=== PATIENT | female | born 1980 | race Caucasian/White ===

== ENCOUNTER 2018-10-05 11:37 | Observation (INO) ==
--- NOTE | 2018-10-05 13:12 | P.HPOB ---
History of Present Illness Service: obstetrics Primary Care Physician: No Primary Care Physician History of Present Illness: 37 yo at 34 weeks with twins Di/Di on aldomet 500 mg BID csme to office with BP 158/90 and 140/102. she has gestational diabetes and diet controlled Diabetes. She feels ok with no weight gain and no headache or visual disturbance Weeks Gestation:: 34 Para: 0 : 2 Total # of Miscarriage(s): 1 Review of Systems All other systems reviewed negative except as stated in HPI PMFSH - Medical / Surgical Hx Neg / Unobtainable Surgical History: No Previous Surgery - Medical History Medical History: Medical History (Last Updated 10/05/18 @ 13:09 by Prabhjot Espana MD) Anxiety about health Asthma affecting in third trimester MTHFR mutation - Social History I have reviewed the patient's Social History: Yes - Tobacco History Second Hand Smoke Exposure: No Tobacco Use In Past 30 Days: No Smoking Status: Never smoker - Alcohol History How Often Do You Have a Drink Containing Alcohol: Never - Substance Use History Substance History: No History of Abuse - Travel History History of Recent Travel: No Medications and Allergies Active Medications: Active Medications Betamethasone Acet/Betameth SodPhos (Celestone Soluspan Inj) 12 mg IM Q24H VAN Stop: 10/07/18 13:14 Non-Formulary Medication (Methyldopa) 500 mg PO BID VAN Non-Formulary Medication (Aspir-81) 81 mg PO DAILY [facility] Sodium Chloride (Ns Flush) 2 ml IV.FLUSH PRN PRN PRN Reason: FLUSH AFTER USING IV ACCESS Sodium Chloride (Ns Flush) 2 ml IV.FLUSH BID [facility] Allergies Allergy/AdvReac Type Severity Reaction Status Date / Time No Known Allergies Allergy Unverified 09/02/18 21:06 Home Medications Medication Instructions Recorded Confirmed Type Aspir-81 81 mg PO DAILY 10/05/18 10/05/18 History [id number] fumarate-FA 1 tab PO DAILY 10/05/18 10/05/18 History [] methyldopa 500 mg PO BID 10/05/18 10/05/18 History Exam Vital signs: Vital Signs 10/05/18 11:50 10/05/18 12:00 10/05/18 12:14 Temperature 98.2 F Pulse Rate 111 H 99 H Respiratory Rate 16 Blood Pressure 158/85 H 155/90 H Intake & Output 10/04/18 10/05/18 10/05/18 18:59 06:59 18:59 Weight 91.626 kg - Constitutional no acute distress - Routine HEENT Exam Head: Present: normocephalic - Routine Neck Exam Present: supple, full ROM - Routine Respiratory Exam Present: CTA bilaterally - Routine Cardiovascular Exam Present: RRR - Routine Abdominal Exam Present: soft, normoactive bowel sounds - Routine Extremities Exam Present: full ROM - Routine Skin Exam Present: intact - Routine Neurological Exam Present: alert, oriented X3 - Additional findings Additional findings: twin with HTN and DM Caprini VTE Risk Assessment Caprini VTE Risk Assessment: No/Low Risk (score <= 1) Caprini Risk Assessment Model: Point Value = 1 Point Value = 2 Point Value = 3 Point Value = 5 Age 41-60 Minor surgery BMI > 25 kg/m2 Swollen legs Varicose veins or History of unexplained or recurrent spontaneous Oral contraceptives or hormone replacement Sepsis (< 1 month) Serious lung disease, including pneumonia (< 1 month) Abnormal pulmonary function Acute myocardial infarction Congestive heart failure (< 1 month) History of inflammatory bowel disease Medical patient at bed rest Age 61-74 Arthroscopic surgery Major open surgery (> 45 min) Laparoscopic surgery (> 45 min) Malignancy Confined to bed (> 72 hours) Immobilizing plaster cast Central venous access Age >= 75 History of VTE Family history of VTE Factor V Leiden Prothrombin [id number] Lupus anticoagulant Anticardiolipin antibodies Elevated serum homocysteine Heparin-induced thrombocytopenia Other congenital or acquired thrombophilia Stroke (< 1 month) Elective arthroplasty Hip, pelvis, or leg fracture Acute spinal cord injury (< 1 month) Prophylaxis Regimen: Total Risk Factor Score Risk Level Prophylaxis Regimen 0-1 Low Early ambulation 2 Moderate Order ONE of the following: *Sequential Compression Device (SCD) *Heparin 5000 units SQ BID 3-4 Higher Order ONE of the following medications: *Heparin 5000 units SQ TID *Enoxaparin/Lovenox 40 mg SQ daily (WT < 150 kg, CrCl > 30 mL/min) *Enoxaparin/Lovenox 30 mg SQ daily (WT < 150 kg, CrCl > 10-29 mL/min) *Enoxaparin/Lovenox 30 mg SQ BID (WT < 150 kg, CrCl > 30 mL/min) AND/OR *Sequential Compression Device (SCD) 5 or more Highest Order ONE of the following medications: *Heparin 5000 units SQ TID (Preferred with Epidurals) *Enoxaparin/Lovenox 40 mg SQ daily (WT < 150 kg, CrCl > 30 mL/min) *Enoxaparin/Lovenox 30 mg SQ daily (WT < 150 kg, CrCl > 10-29 mL/min) *Enoxaparin/Lovenox 30 mg SQ BID (WT < 150 kg, CrCl > 30 mL/min) AND *Sequential Compression Device (SCD) Assessment and Plan - Diagnosis (1) Diabetes mellitus in in third trimester Code(s): O24.913 - Unspecified diabetes mellitus in , third trimester Status: Acute (2) Twin gestation in third trimester Code(s): O30.003 - Twin , unspecified number of placenta and unspecified number of amniotic sacs, third trimester Status: Acute (3) Hypertension affecting in third trimester Code(s): O16.3 - Unspecified maternal hypertension, third trimester Status: Acute - Plan 24 hour urine labs and serial BP
[2018-10-05 13:15] LABS: Baso % (Auto) 0.5 % (0.0-2.0); Eos # (Auto) 0.2 th/mm3 (0.0-0.4); Eos % (Auto) 2.3 % (0.0-4.0); Hematocrit 34.9 % (35.0-46.0); Hemoglobin 12.1 gm/dL (11.6-15.3); Lymph # (Auto) 1.2 th/mm3 (1.0-4.8); Lymph % (Auto) 15.4 % (9.0-44.0); Mean Corpuscular HGB Conc 34.7 % (32.0-36.0); Mean Corpuscular Hemoglobin 32.5 pg (27.0-34.0); Mean Corpuscular Volume 93.9 fL (80.0-100.0); Mean Platelet Volume 8.3 fL (7.0-11.0); Mono # (Auto) 0.4 th/mm3 (0.0-0.9); Mono % (Auto) 5.7 % (0.0-8.0); Neut % (Auto) 76.1 % (16.0-70.0); Platelet Count 219 th/mm3 (150-450); Red Blood Count 3.72 mil/mm3 (4.00-5.30); Red Cell Distribution Width 14.8 % (11.6-17.2); White Blood Count 7.9 th/mm3 (4.0-11.0)
[2018-10-05 13:45] LABS: Albumin 2.6 g/dL (3.4-5.0); Anion Gap 8 meq/L (5-15); Aspartate Aminotransferase 26 U/L (15-37); Blood Urea Nitrogen 10 mg/dL (7-18); Calcium 8.7 mg/dL (8.5-10.1); Chloride 109 meq/L (98-107); Glomerular Filtration Rate Greater Than 89 mL/min (>89); Glucose,Random 67 mg/dL (74-106); Potassium 3.8 meq/L (3.5-5.1); Sodium 137 meq/L (136-145); Uric Acid 4.4 mg/dl (2.6-6.0)
[2018-10-05 13:46] LABS: Alanine Aminotransferase 22 U/L (10-53)
[2018-10-05 13:48] LABS: Alkaline Phosphatase 289 U/L (45-117); Total Protein 6.9 g/dL (6.4-8.2)
[2018-10-05] MEDS: Betamethasone Sod Phos/Acetate Inj 30 MG/5 ML Vial IM SCH (13:57)
[2018-10-05] MEDS ORDERED: Citric Acid/Sodium Citrate Liq 30 ML UDC ONE (23:56)
[2018-10-06 12:01] VITALS: TEMP 98.8
[2018-10-06 12:05] VITALS: BP 125/68; PULSE 138; RESP 17
[2018-10-06] MEDS: Betamethasone Sod Phos/Acetate Inj 30 MG/5 ML Vial IM SCH (14:02)
== END 2018-10-06 14:30 | disposition home or self-care (01) ==
LOC: H2E
PROVIDERS: ADMIT Obstetrics & Gynecology; ATTEND Obstetrics & Gynecology

== ENCOUNTER 2018-10-19 13:55 | Inpatient (IN) ==
[2018-10-19] MEDS ORDERED: ceFAZolin 2 GM Premix Inj 2 GM/50 ML PIGGYBACK IV.SIG PRN (14:53)
[2018-10-19] MEDS ORDERED: Citric Acid/Sodium Citrate Liq 30 ML UDC PO SCH (15:00)
--- NOTE | 2018-10-19 15:06 | P.HPOB ---
History of Present Illness Service: for cs 36 weeks twins hypertension and diabetes gestational Primary Care Physician: No Primary Care Physician History of Present Illness: 37 yo here for CS for twin A breech. Bp today 150/96 and repeat the same, She has Rasheeda twins and gestational diabetes managed with diet. She is on aldomet 500 mg BID Weeks Gestation:: 36 Para: 0 : 2 - Inpatient Certification I certify that the inpatient services were ordered in accordance with Medicare regulations governing the order. This includes certification that hospital inpatient services are reasonable and necessary and in the case of services not specified as inpatient-only under 42 CFR 419.22(n), that they are appropriately provided as inpatient services in accordance to with the 2-midnight benchmark under 43 CFR 412.3(e) Estimated Total Length of Stay (Days): 3 Plans for Post Hospital Care: Home Review of Systems All other systems reviewed negative except as stated in HPI PMFSH - Medical / Surgical Hx Neg / Unobtainable Medical Problems Denied: Yes (asthma, and anxiety) - Medical History Medical History: Medical History (Last Updated 10/05/18 @ 13:09 by Prabhjot Espana MD) Anxiety about health Asthma affecting in third trimester MTHFR mutation - Social History I have reviewed the patient's Social History: Yes - Tobacco History Second Hand Smoke Exposure: No Smoking Status: Never smoker - Alcohol History How Often Do You Have a Drink Containing Alcohol: Never - Substance Use History Substance History: No History of Abuse - Travel History History of Recent Travel: No Medications and Allergies Active Medications: Active Medications Citric Acid/Sodium Citrate (Sodium Citrate/Citric Acid Liq) 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[employer] 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 Stop: 10/23/18 14:59 Cefazolin Sodium/Dextrose (Ancef 2 Gm Premix Inj) 2 gm in 50 mls @ 100 mls/hr IV.SIG [employer]IST[employer] PROFESS[employer] PRN PRN Reason: ON-CALL Stop: 10/20/18 14:52 Lactated Ringer's (Lr 1000 Ml Inj) 1,000 mls @ 150 mls/hr IV.CONT .Q6H40M VAN Lactated Ringer's (Lr 1000 Ml Inj) 1,000 mls @ 2,000 mls/hr IV.SIG .Q30M ONE Stop: 10/19/18 15:22 Non-Formulary Medication (Methyldopa) 500 mg PO BID VAN Allergies Allergy/AdvReac Type Severity Reaction Status Date / Time No Known Allergies Allergy Verified 10/19/18 14:29 Home Medications Medication Instructions Recorded Confirmed Type Aspir-81 81 mg PO DAILY 10/05/18 10/19/18 History [id number] fumarate-FA 1 tab PO DAILY 10/05/18 10/19/18 History [] albuterol sulfate 1 puff INHALATION DAILY PRN 10/05/18 10/19/18 History methyldopa 500 mg PO BID 10/05/18 10/19/18 History Exam Vital signs: Vital Signs 10/19/18 14:14 10/19/18 14:15 Temperature 98.0 F Pulse Rate 107 H Respiratory Rate 20 Blood Pressure 151/85 H Intake & Output 10/18/18 10/19/18 10/19/18 18:59 06:59 18:59 Weight 91.172 kg - Constitutional no acute distress, average body habitus - Routine HEENT Exam Head: Present: normocephalic - Routine Neck Exam Present: supple, full ROM - Routine Respiratory Exam Present: CTA bilaterally - Routine Cardiovascular Exam Present: RRR - Routine Abdominal Exam Present: soft, normoactive bowel sounds - Routine Exam External: Present: normal urethra appearance Perineum Description: Intact Comments: US breech vertex presentation - Routine Extremities Exam Present: full ROM - Routine Skin Exam Present: intact - Routine Neurological Exam Present: alert, oriented X3 Results - Labs Labs: Laboratory Results - last 24 hr 10/19/18 14:11 POC Glucose 66 L Caprini VTE Risk Assessment Caprini VTE Risk Assessment: No/Low Risk (score <= 1) Caprini Risk Assessment Model: Point Value = 1 Point Value = 2 Point Value = 3 Point Value = 5 Age 41-60 Minor surgery BMI > 25 kg/m2 Swollen legs Varicose veins or History of unexplained or recurrent spontaneous Oral contraceptives or hormone replacement Sepsis (< 1 month) Serious lung disease, including pneumonia (< 1 month) Abnormal pulmonary function Acute myocardial infarction Congestive heart failure (< 1 month) History of inflammatory bowel disease Medical patient at bed rest Age 61-74 Arthroscopic surgery Major open surgery (> 45 min) Laparoscopic surgery (> 45 min) Malignancy Confined to bed (> 72 hours) Immobilizing plaster cast Central venous access Age >= 75 History of VTE Family history of VTE Factor V Leiden Prothrombin [id number] Lupus anticoagulant Anticardiolipin antibodies Elevated serum homocysteine Heparin-induced thrombocytopenia Other congenital or acquired thrombophilia Stroke (< 1 month) Elective arthroplasty Hip, pelvis, or leg fracture Acute spinal cord injury (< 1 month) Prophylaxis Regimen: Total Risk Factor Score Risk Level Prophylaxis Regimen 0-1 Low Early ambulation 2 Moderate Order ONE of the following: *Sequential Compression Device (SCD) *Heparin 5000 units SQ BID 3-4 Higher Order ONE of the following medications: *Heparin 5000 units SQ TID *Enoxaparin/Lovenox 40 mg SQ daily (WT < 150 kg, CrCl > 30 mL/min) *Enoxaparin/Lovenox 30 mg SQ daily (WT < 150 kg, CrCl > 10-29 mL/min) *Enoxaparin/Lovenox 30 mg SQ BID (WT < 150 kg, CrCl > 30 mL/min) AND/OR *Sequential Compression Device (SCD) 5 or more Highest Order ONE of the following medications: *Heparin 5000 units SQ TID (Preferred with Epidurals) *Enoxaparin/Lovenox 40 mg SQ daily (WT < 150 kg, CrCl > 30 mL/min) *Enoxaparin/Lovenox 30 mg SQ daily (WT < 150 kg, CrCl > 10-29 mL/min) *Enoxaparin/Lovenox 30 mg SQ BID (WT < 150 kg, CrCl > 30 mL/min) AND *Sequential Compression Device (SCD) Assessment and Plan - Diagnosis (1) Twin gestation in third trimester Code(s): O30.003 - Twin , unspecified number of placenta and unspecified number of amniotic sacs, third trimester Status: Acute (2) Hypertension affecting in third trimester Code(s): O16.3 - Unspecified maternal hypertension, third trimester Status: Acute (3) Diabetes mellitus in in third trimester Code(s): O24.913 - Unspecified diabetes mellitus in , third trimester Status: Acute (4) Anxiety about health Code(s): F41.8 - Other specified anxiety disorders Status: Acute - Plan for primary CS
[2018-10-19 15:35] LABS: Baso # (Auto) 0.1 th/mm3 (0.0-0.2); Baso % (Auto) 0.5 % (0.0-2.0); Eos # (Auto) 0.1 th/mm3 (0.0-0.4); Eos % (Auto) 1.1 % (0.0-4.0); Hemoglobin 13.3 gm/dL (11.6-15.3); Lymph # (Auto) 1.6 th/mm3 (1.0-4.8); Lymph % (Auto) 16.7 % (9.0-44.0); Mean Corpuscular Hemoglobin 32.6 pg (27.0-34.0); Mean Corpuscular Volume 93.1 fL (80.0-100.0); Mean Platelet Volume 8.8 fL (7.0-11.0); Mono # (Auto) 0.5 th/mm3 (0.0-0.9); Mono % (Auto) 5.4 % (0.0-8.0); Neut # (Auto) 7.3 th/mm3 (1.8-7.7); Neut % (Auto) 76.3 % (16.0-70.0); Platelet Count 210 th/mm3 (150-450); Red Blood Count 4.08 mil/mm3 (4.00-5.30); Red Cell Distribution Width 14.8 % (11.6-17.2); White Blood Count 9.6 th/mm3 (4.0-11.0)
[2018-10-19] MEDS ORDERED: Morphine Sulfate PF Inj 5 MG/10 ML Ampul ONE (15:44)
[2018-10-19 16:03] LABS: Bacteria,Urine Rare /hpf; Bilirubin,Urine Negative (Negative); Clarity,Urine Clear (Clear); Color,Urine Yellow (Yellw/Straw); Glucose,Urine (UA) Negative (Negative); Leukocyte Esterase,Urine Negative (Negative); Mucus,Urine Few /lpf (Occasional); Nitrite,Urine Negative (Negative); Specific Gravity,Urine 1.015 (1.002-1.035); Squamous Epithelial Cell,Urine 1 /hpf (0-5)
[2018-10-19] MEDS ORDERED: Oxytocin 30 Units/500ml Premix 30 UNITS/500 ML BAG IV.SIG ONE (16:56)
[2018-10-19] MEDS ORDERED: Simethicone 80 MG Chew Tablet PO PRN (16:56)
--- NOTE | 2018-10-19 17:04 | P.OBDELI ---
Procedure Note - Pre Op Diagnosis (1) Maternal care for breech presentation, fetus 2 (2) Twin gestation in third trimester (3) Hypertension affecting in third trimester (4) Diabetes mellitus in in third trimester (5) Anxiety about health - Post Op Diagnosis (1) delivery delivered Performed by: Prahbjot Espana MD Procedure: Primary Low Transverse Section Indication for Delivery: malposition (twin Breech/vertex) Informed Consent Obtained: For anesthesia, For procedure Confirmed Correct: Patient, Procedure, Site, Time-out taken Anesthesia: Spinal Medication Prior to Procedure: As documented in eMAR Monitoring During Procedure: Blood pressure monitoring Urinary Catheter: Inserted using sterile technique, To dependent drainage Sterile Preparation: Duraprep Position: Supine with wedge to left side - Operative Features Skin Incision: Pfannenstiel Uterine Incision: Low transverse w/knife / blunt ext Membranes Ruptured: Artificially Presentation: Occiput anterior, Breech Status of : Viable Placenta Delivered: Intact Medications: Antibiotics Procedure Tolerated: Well Maternal Condition: Stable Procedure in Detail: Taken to the operating room identified by name band and verbally and given a regional anesthetic. She was prepped and draped in the usual sterile manner for a section. A time out was taken. A Pfannenstiel incision was made and carried down to the fascia the fascia was nicked bilaterally and the fascia was taken off the rectus muscle by blunt and sharp dissection. The rectus muscles were spread bluntly and the peritoneum was entered under direct vision. The incision was extended with care to avoid the urinary bladder. A bladder blade was placed and a bladder flap was created in the usual fashion. The lower uterine segment was then incised sharply in a transverse manner and taken down in the midline until the uterine cavity was entered. The incision was extended with the surgeon's fingers. twin A in breech presentation delivered [place] breech and arm flexed across chest and keeping head flexed twin A delivered with gentle fundal pressure. Twin B The vertex was grasped and with fundal pressure the vertex was delivered without difficulty hypopharynx and nasopharynx were suctioned and the remainder of the infant delivered without difficulty. The cord clamping was delayed 45 seconds on both babies and then the cord was clamped cut and the was handed over to the resuscitation team cord blood was obtained the placentas were removed manually and the uterus was curettaged twice with a wet lap. The uterus was delivered from the abdomen. The uterine incision was repaired with 0 Vicryl in a running fashion in 2 layers the second layer imbricating the first. The cul- de-sac and gutters were cleaned of blood and debris the uterus was delivered back into the abdomen. The rectus muscles were reapproximated with 0 Vicryl in a running the fascia was repaired with 0 Vicryl from lateral to midline bilaterally. The subcutaneous layer was repaired with a 3-0 Vicryl. The skin was repaired with a 4-0 Monocryl in a subcuticular manner. Patient tolerated the procedure well and went to recovery room in good condition. - Infant Infant: Male, Multiple (twins)
[2018-10-19] MEDS ORDERED: Oxytocin 30 Units/500ml Premix 30 UNITS/500 ML BAG ONE (17:45)
[2018-10-19] MEDS ORDERED: Naloxone Inj 0.4 MG/ML Vial IV.PUSH PRN (19:11)
[2018-10-19] MEDS ORDERED: Oxytocin 30 Units/500ml Premix 30 UNITS/500 ML BAG IV.SIG PRN (21:56)
[2018-10-19] MEDS: Ibuprofen 600 MG Tablet PO PRN (22:40)
[2018-10-19] MEDS: Senna/Docusate Sodium 8.6/50 MG Tablet PO PRN (22:41)
[2018-10-20 08:28] LABS: Baso # (Auto) 0.1 th/mm3 (0.0-0.2); Baso % (Auto) 0.5 % (0.0-2.0); Eos # (Auto) 0.1 th/mm3 (0.0-0.4); Eos % (Auto) 0.8 % (0.0-4.0); Lymph # (Auto) 1.7 th/mm3 (1.0-4.8); Lymph % (Auto) 15.6 % (9.0-44.0); Mean Corpuscular HGB Conc 34.3 % (32.0-36.0); Mean Corpuscular Hemoglobin 31.4 pg (27.0-34.0); Mean Corpuscular Volume 91.4 fL (80.0-100.0); Mean Platelet Volume 7.6 fL (7.0-11.0); Mono # (Auto) 0.9 th/mm3 (0.0-0.9); Neut # (Auto) 8.4 th/mm3 (1.8-7.7); Neut % (Auto) 75.1 % (16.0-70.0); Platelet Count 189 th/mm3 (150-450); Red Cell Distribution Width 14.9 % (11.6-17.2); White Blood Count 11.2 th/mm3 (4.0-11.0)
[2018-10-20] MEDS: Ibuprofen 600 MG Tablet PO PRN ×2 (10:40→18:36)
--- NOTE | 2018-10-20 12:15 | P.PNOB ---
Subjective Post op day: 1 Interval history: Pt doing well, good pain control, tolerating po, ambulating well Objective Vital Signs/I&O: Vital Signs 10/19/18 14:14 10/19/18 14:15 10/19/18 17:05 Temperature 98.0 F 97.5 F L Pulse Rate 107 H 118 H Respiratory Rate 20 18 Blood Pressure 151/85 H 123/58 L 10/19/18 17:17 10/19/18 17:31 10/19/18 17:47 Temperature 97.7 F Pulse Rate 107 H 116 H 120 H Respiratory Rate 18 Blood Pressure 118/57 L 120/59 L 128/57 L 10/19/18 18:04 10/19/18 18:14 10/19/18 19:04 Temperature 97.9 F Pulse Rate 112 H 107 H 101 H Respiratory Rate 18 Blood Pressure 137/61 115/63 126/69 10/20/18 00:05 10/20/18 04:05 10/20/18 09:05 Temperature 98.5 F 98.7 F 97.6 F Pulse Rate 90 97 H 123 H Respiratory Rate 16 Blood Pressure 142/79 H 113/81 113/79 10/20/18 10:49 Temperature Pulse Rate 119 H Respiratory Rate Blood Pressure 106/75 Intake & Output 10/19/18 10/20/18 10/20/18 18:59 06:59 18:59 Intake Total 1100 / 1100 Balance 1100 / 1100 Weight 91.172 kg Intake: IV 1100 / 1100 Ofirmev Inj 1,000 mg In 100 ml 100 / 100 @ 0 mls/hr IV.SIG .STK-MED ONE Rx#:[id number] LR 1000 mL Inj 1,000 ML @ 2000 1000 / 1000 mls/hr IV.SIG .Q30M ONE Rx#: [id number] Result Diagrams: 10/20/18 08:11 Objective Remarks: GENERAL: Well-nourished, well-developed patient. CARDIOVASCULAR: Regular rate and rhythm without murmurs, gallops, or rubs. RESPIRATORY: Breath sounds equal bilaterally. No accessory muscle use. ABDOMEN/GI: Abdomen soft, non-tender, bowel sounds present. Incision: Clean, dry and intact. Fundus: Firm, non-tender at umbilicus. GENITOURINARY: Light to moderate bleeding. EXTREMITIES: No cyanosis or edema, non-tender, without signs of DVT. 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 Stop: 10/23/18 14:59 Diphenhydramine HCl (Benadryl Inj) 25 mg IV.PUSH Q6H PRN PRN Reason: MILD TO MODERATE ITCHING Stop: 10/20/18 19:10 Diphenhydramine HCl (Benadryl) 50 mg PO Q6H PRN PRN Reason: MILD TO MODERATE ITCHING Stop: 10/20/18 19:10 Diphtheria/Pertussis/Tetanus Vacc (Boostrix Vaccine Inj) 0.5 ml IM .ONCE ONE Stop: 10/20/18 16:01 Cefazolin Sodium/Dextrose (Ancef 2 Gm Premix Inj) 2 gm in 50 mls @ 100 mls/hr IV.SIG CRUCIBLE PACKER PRN PRN Reason: ON-CALL Stop: 10/20/18 14:52 Lactated Ringer's (Lr 1000 Ml Inj) 1,000 mls @ 100 mls/hr IV.CONT .Q10H [facility] Stop: 10/20/18 17:55 Last Admin: 10/19/18 22:44 Dose: 100 mls/hr Oxytocin (Pitocin 30 Units/Ns 500 Ml Premix) 30 units in 500 mls @ 100 mls/hr IV.SIG PRN PRN PRN Reason: Heavy bleeding Stop: 10/20/18 21:55 Last Admin: 10/19/18 22:56 Dose: 100 mls/hr Ibuprofen (Motrin) 600 mg PO Q6HR PRN PRN Reason: cramping Last Admin: 10/20/18 10:40 Dose: 600 mg Ketorolac Tromethamine (Toradol Inj) 30 mg IM Q6H PRN PRN Reason: SEE LABEL COMMENTS Stop: 10/24/18 16:55 Measles/Mumps/Rubella Vaccine Live (M-M-R Ii Vaccine Inj) 0.5 ml SQ .ONCE ONE Stop: 10/20/18 16:01 Methyldopa (Aldomet) 500 mg PO BID [facility] Last Admin: 10/20/18 12:13 Dose: 500 mg Miscellaneous Information (Mis Nursing Information) 1 each OTHER UNSCH PRN PRN Reason: SEE LABEL COMMENTS Stop: 10/20/18 19:10 Naloxone HCl (Narcan Inj) 0.4 mg IV.PUSH UNSCH PRN PRN Reason: SEE LABEL COMMENTS Stop: 10/20/18 19:10 Ondansetron HCl (Zofran Inj) 4 mg IV.PUSH Q6H PRN PRN Reason: NAUSEA OR VOMITING Oxycodone/Acetaminophen (Percocet 5/325 Mg) 1 tab PO Q4H PRN PRN Reason: PAIN SCALE 3 TO 5 Last Admin: 10/20/18 10:40 Dose: 1 tab Oxycodone/Acetaminophen (Percocet 5/325 Mg) 2 tab PO Q4H PRN PRN Reason: PAIN SCALE 6 TO 10 Senna/Docusate Sodium (Kimberly-Colace) 2 tab PO Q12H PRN PRN Reason: CONSTIPATION Last Admin: 10/19/18 22:41 Dose: 2 tab Simethicone (Mylicon Chew) 80 mg PO QID PRN PRN Reason: FLATULENCE Sodium Chloride (Ns Flush) 2 ml IV.FLUSH BID VAN Last Admin: 10/20/18 11:36 Dose: Not Given Sodium Chloride (Ns Flush) 2 ml IV.FLUSH PRN PRN PRN Reason: FLUSH AFTER USING IV ACCESS Assessment and Plan - Diagnosis (1) Twin gestation in third trimester Code(s): O30.003 - Twin , unspecified number of placenta and unspecified number of amniotic sacs, third trimester Status: Acute (2) Hypertension affecting in third trimester Code(s): O16.3 - Unspecified maternal hypertension, third trimester Status: Acute (3) Diabetes mellitus in in third trimester Code(s): O24.913 - Unspecified diabetes mellitus in , third trimester Status: Acute (4) Anxiety about health Code(s): F41.8 - Other specified anxiety disorders Status: Acute - Plan POD # 1 s/p primary c/s due to twins with breech presenting with CHTN on aldomet doing well, routine care
[2018-10-20] MEDS ORDERED: Measles/Mumps/Rubella Vaccine Inj 0.5 ML Vial SQ ONE (16:00)
[2018-10-20] MEDS ORDERED: Diphtheria/Tetanus/Pertussis Vaccine Inj 0.5 ML Syringe IM ONE (16:00)
[2018-10-20] MEDS: Senna/Docusate Sodium 8.6/50 MG Tablet PO PRN (20:54)
[2018-10-21] MEDS: Ibuprofen 600 MG Tablet PO PRN ×4 (02:59→21:11)
--- NOTE | 2018-10-21 14:08 | P.PNOB ---
Subjective Post op day: 2 Interval history: Pt doing well, good pain control, ambulating well, tolerating po Objective Vital Signs/I&O: Vital Signs 10/20/18 20:05 10/21/18 08:15 Temperature 98.4 F 98.2 F Pulse Rate 103 H 109 H Respiratory Rate 18 17 Blood Pressure 113/54 L 133/77 Result Diagrams: 10/20/18 08:11 Objective Remarks: GENERAL: Well-nourished, well-developed patient. CARDIOVASCULAR: Regular rate and rhythm without murmurs, gallops, or rubs. RESPIRATORY: Breath sounds equal bilaterally. No accessory muscle use. ABDOMEN/GI: Abdomen soft, non-tender, bowel sounds present. Incision: Clean, dry and intact. Fundus: Firm, non-tender at umbilicus. GENITOURINARY: Light to moderate bleeding. EXTREMITIES: No cyanosis or edema, non-tender, without signs of DVT. 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[facility] Stop: 10/23/18 14:59 Ibuprofen (Motrin) 600 mg PO Q6HR PRN PRN Reason: cramping Last Admin: 10/21/18 09:21 Dose: 600 mg Ketorolac Tromethamine (Toradol Inj) 30 mg IM Q6H PRN PRN Reason: SEE LABEL COMMENTS Stop: 10/24/18 16:55 Methyldopa (Aldomet) 500 mg PO BID [facility] Last Admin: 10/21/18 09:21 Dose: 500 mg Ondansetron HCl (Zofran Inj) 4 mg IV.PUSH Q6H PRN PRN Reason: NAUSEA OR VOMITING Oxycodone/Acetaminophen (Percocet 5/325 Mg) 1 tab PO Q4H PRN PRN Reason: PAIN SCALE 3 TO 5 Last Admin: 10/21/18 12:51 Dose: 1 tab Oxycodone/Acetaminophen (Percocet 5/325 Mg) 2 tab PO Q4H PRN PRN Reason: PAIN SCALE 6 TO 10 Last Admin: 10/20/18 22:18 Dose: 2 tab Senna/Docusate Sodium (Kimberly-Colace) 2 tab PO Q12H PRN PRN Reason: CONSTIPATION Last Admin: 10/20/18 20:54 Dose: 2 tab Simethicone (Mylicon Chew) 80 mg PO QID PRN PRN Reason: FLATULENCE Sodium Chloride (Ns Flush) 2 ml IV.FLUSH BID VAN Last Admin: 10/21/18 09:21 Dose: 2 ml Sodium Chloride (Ns Flush) 2 ml IV.FLUSH PRN PRN PRN Reason: FLUSH AFTER USING IV ACCESS Assessment and Plan - Diagnosis (1) Twin gestation in third trimester Code(s): O30.003 - Twin , unspecified number of placenta and unspecified number of amniotic sacs, third trimester Status: Acute (2) Hypertension affecting in third trimester Code(s): O16.3 - Unspecified maternal hypertension, third trimester Status: Acute (3) Diabetes mellitus in in third trimester Code(s): O24.913 - Unspecified diabetes mellitus in , third trimester Status: Acute (4) Anxiety about health Code(s): F41.8 - Other specified anxiety disorders Status: Acute - Plan POD #2 s/p primary c/s due to twins with breech presenting with CHTN on aldomet doing well, routine care
[2018-10-21] MEDS: Senna/Docusate Sodium 8.6/50 MG Tablet PO PRN (15:27)
[2018-10-21 22:30] VITALS: RESP 18
[2018-10-22] MEDS: Ibuprofen 600 MG Tablet PO PRN (07:09)
[2018-10-22] MEDS: Senna/Docusate Sodium 8.6/50 MG Tablet PO PRN (07:12)
[2018-10-22 08:37] VITALS: BP 118/76; PULSE 110; TEMP 98.1
--- NOTE | 2018-10-22 08:54 | P.PNOB ---
Subjective Post day: 3 Interval history: doing well dc home Objective Vital Signs/I&O: Vital Signs 10/21/18 20:15 10/22/18 08:05 Temperature 98.7 F 98.1 F Pulse Rate 106 H 110 H Respiratory Rate 18 18 Blood Pressure 111/67 118/76 Result Diagrams: 10/20/18 08:11 Objective Remarks: GENERAL: Well-nourished, well-developed patient. CARDIOVASCULAR: Regular rate and rhythm without murmurs, gallops, or rubs. RESPIRATORY: Breath sounds equal bilaterally. No accessory muscle use. ABDOMEN/GI: Abdomen soft, non-tender. Fundus: Firm, non-tender at umbilicus. GENITOURINARY: Light to moderate bleeding. EXTREMITIES: No cyanosis or edema, non-tender, without signs of DVT. Medications and IVs: Active Medications Citric Acid/Sodium Citrate (Sodium Citrate/Citric Acid Liq) 30 ml PO [employer] [facility] Stop: 10/23/18 14:59 Ibuprofen (Motrin) 600 mg PO Q6HR PRN PRN Reason: cramping Last Admin: 10/22/18 07:09 Dose: 600 mg Ketorolac Tromethamine (Toradol Inj) 30 mg IM Q6H PRN PRN Reason: SEE LABEL COMMENTS Stop: 10/24/18 16:55 Methyldopa (Aldomet) 500 mg PO BID [facility] Last Admin: 10/21/18 21:11 Dose: 500 mg Ondansetron HCl (Zofran Inj) 4 mg IV.PUSH Q6H PRN PRN Reason: NAUSEA OR VOMITING Oxycodone/Acetaminophen (Percocet 5/325 Mg) 1 tab PO Q4H PRN PRN Reason: PAIN SCALE 3 TO 5 Last Admin: 10/22/18 07:11 Dose: 1 tab Oxycodone/Acetaminophen (Percocet 5/325 Mg) 2 tab PO Q4H PRN PRN Reason: PAIN SCALE 6 TO 10 Last Admin: 10/20/18 22:18 Dose: 2 tab Senna/Docusate Sodium (Kimberly-Colace) 2 tab PO Q12H PRN PRN Reason: CONSTIPATION Last Admin: 10/22/18 07:12 Dose: 2 tab Simethicone (Mylicon Chew) 80 mg PO QID PRN PRN Reason: FLATULENCE Sodium Chloride (Ns Flush) 2 ml IV.FLUSH BID VAN Last Admin: 10/21/18 09:21 Dose: 2 ml Sodium Chloride (Ns Flush) 2 ml IV.FLUSH PRN PRN PRN Reason: FLUSH AFTER USING IV ACCESS Assessment and Plan - Diagnosis (1) Twin gestation in third trimester Code(s): O30.003 - Twin , unspecified number of placenta and unspecified number of amniotic sacs, third trimester Status: Acute (2) Hypertension affecting in third trimester Code(s): O16.3 - Unspecified maternal hypertension, third trimester Status: Acute (3) Diabetes mellitus in in third trimester Code(s): O24.913 - Unspecified diabetes mellitus in , third trimester Status: Acute (4) Anxiety about health Code(s): F41.8 - Other specified anxiety disorders Status: Acute - Plan POD #2 s/p primary c/s due to twins with breech presenting with CHTN on aldomet doing well, routine care
--- NOTE | 2018-10-22 09:00 | P.DS ---
Date of admission: 10/19/18 13:55 Primary care physician: Jami Primary Care Physician Brief History from admission: 37 yo here for CS for twin A breech. Bp today 150/96 and repeat the same, She has Rasheeda twins and gestational diabetes managed with diet. She is on aldomet 500 mg BID DS: Diagnosis - Discharge Diagnosis (1) Twin gestation in third trimester Status: Acute (2) Hypertension affecting in third trimester Status: Acute (3) Diabetes mellitus in in third trimester Status: Acute (4) Anxiety about health Status: Acute DS: Medications - Discharge Medications Prescriptions: oxycodone-acetaminophen 2 tab PO Q4H PRN 3 Days #24 tab PRN Reason: Pain Scale 6 To 10 DS: Summary Hospital Course: cs for HTN on monday and DC home POD #3 - Time Spent with Patient Total time spent providing and/or coordinating discharge services: Less than 30 minutes Exam Vital signs: Vital Signs 10/21/18 20:15 10/22/18 08:05 Temperature 98.7 F 98.1 F Pulse Rate 106 H 110 H Respiratory Rate 18 18 Blood Pressure 111/67 118/76 - Constitutional no acute distress Results Procedures completed during hospitalization: cs Discharge Plan - Discharge Disposition Patient Disposition: Discharge Home - Discharge Order Discharge Orders: Discharge Order (Routine); Ordered 10/22/18 Ordered By: Prabhjot Espana - Physicians Team Primary Care Provider: Primary Jami Baca Attending Provider: Prabhjot Espana - Rxs /Orders / Referrals /Forms Prescriptions: New oxycodone-acetaminophen 5-325 mg Tablet 2 tab PO Q4H PRN (Reason: Pain Scale 6 To 10) 3 Days Qty: 24 RF: 0 Continue albuterol sulfate aerosol 1 puff Inhalation DAILY PRN (Reason: Shortness Of Breath) [id number] fumarate-FA [] 28-800 mg-mcg Tablet 1 tab PO DAILY Discontinued Aspir-81 81 mg PO DAILY methyldopa 500 mg PO BID Referrals: Prabhjot Espana MD [Physician] - See Instructions Primary Care Jami Simms [Primary Care Provider] - See Instructions - Post Discharge Care Plan Care Plan Goals: Discharge Care Plan Goals After Section Congratulations on your new baby! We want your recovery to be bunn and trouble free. You had a section, or . During the , your baby was delivered through an incision in your abdomen and uterus. Full recovery after a can take time. Its important to take care of yourself for your own sake and because your new baby needs you. Here are some guidelines to follow at home. Incision care: Here's how to take care of your incision: * Shower as needed. Pat your incision dry. * Watch your incision for signs of infection, like more redness or drainage. * Hold a pillow against the incision when you laugh or cough and when you get up from a lying or sitting position. * Remember, it can take as long as 6 weeks for your incision to heal. Diet and Activity: Here are some suggestions: * Dont try to take care of anyone other than your baby and yourself. * Remember, the more active you are, the more likely you are to have an increase in your bleeding. * Get lots of rest. Take naps when the is napping. * Increase your activities bit by bit. * Plan your activities so that you dont have to go up or down stairs more than needed. * Do postsurgical deep breathing and coughing exercises. Follow your physician' s instructions. * Dont lift anything heavier than your baby until your physician tells you it s OK. * Dont drive when you are on pain medications. * Dont have sexual intercourse until after youve had a checkup with your physician and you have decided on a control method. * Allow others to do things for you. Don't hesitate to ask for help. If you are : * Ask before you take any medicine. * If you leak milk, it will help to nurse right before the activity. * Talk to your healthcare provider about alcohol, if you choose to drink. * When youre sick, check with your physician if the medications would impact the breast feeding * Ask your physician before taking any prescription or over-the- counter medicines, herbs, or supplements. * Ask your physician what to use for prevention while you are nursing. Balancing the Blues: Recognize your need to talk, to feel protected, to have private time. Allow yourself to cry, to sit, to think. Ask for help when you need it, and accept help when its offered. Knowing your needs is not a weakness. Share your thoughts with your partner. Or garbage pick up worker the phone and call a friend, your mother , a sister, or an aunt. Rest, eat right, and get some light exercise. The mind feels best when the body feels good. When to Call your Physician: * Fever of 100.5F or higher. * Redness, pain, or drainage at your incision site * Bleeding that requires a new sanitary pad every hour * Severe pain in the abdomen * Pain or urgency with urination * Foul odor from vaginal discharge * Trouble urinating or emptying your bladder * No bowel movement within 1 week after the of your baby * Swollen, red, painful area in the calf/leg * Appearance of rash or hives * Sore, red, painful area on the breasts that may come with flu-like symptoms * Feelings of anxiety, panic, and/or depression Signs of Depression include: You dont want to be with the baby. Your symptoms are not getting better, and youre getting more upset. You have no interest in eating or are not able to sleep. You think you may harm yourself or the baby. The Depression After Delivery hotline (372-289-9173) may also be helpful. Follow-Up: * Keep your appointments as scheduled. * If your symptoms worsen call your OB Physician, or go to an Urgent Care Center or Emergency Room. * Smoking is Dangerous to your health. Avoid second hand smoke. * Call the 24-hour crisis hotline for domestic abuse at Call 911: Call 911 right away if you have: * Sudden onset of chest pain that is not relieved by medications. * Shortness of breath * Severe Depression /Thoughts of harm to self and others
== END 2018-10-22 14:47 | disposition home or self-care (01) ==
LOC: H2E 13:55 → H1EA 18:26
PROVIDERS: ADMIT Obstetrics & Gynecology; ATTEND Obstetrics & Gynecology